=== PATIENT | male | born 1995 ===

== ENCOUNTER 2024-01-11 21:13 | Emergency (ER) | payer SELFPAY ==
[~2024-01-11] VITALS: Ht 180.3 cm; Wt 77.0 kg
[2024-01-11 21:43] VITALS: BP 133/94; PULSE 84; RESP 18; TEMP 98; O2SAT 100
[2024-01-11] MEDS ORDERED: KETOROLAC 30MG/ML VIAL IM STA (21:59)
[2024-01-12] MEDS ORDERED: KETOROLAC 30MG/ML VIAL IM NR (01:30)
== END 2024-01-12 01:53 | disposition home or self-care (01) ==
LOC: ER 21:22
DX: B34.9 Viral infection, unspecified (principal); R50.9 Fever, unspecified; R05.9 Cough, unspecified
CPT/HCPCS: 71045; 93005; 99283